=== PATIENT | male | born 1970 | race Caucasian/White ===

== ENCOUNTER 2020-02-12 19:13 | Emergency (ER) | payer SELFPAY ==
[2020-02-12 19:55] LABS: ABSOLUTE BASOPHILS # (AUTO) 0.1 10^3/uL (0.0-0.2); ABSOLUTE EOSINOPHILS # (AUTO) 0.4 10^3/uL (0.0-0.6); ABSOLUTE MONOCYTES (AUTO) 0.9 10^3/uL (0.1-1.4); ABSOLUTE NEUT (AUTO) 6.7 10^3/uL (1.7-8.2); EOSINOPHILS % (AUTO) 3.7 % (0-6); HEMATOCRIT 45.5 % (37.9-51.0); HEMOGLOBIN 16.2 g/dL (13.5-17.0); LYMPHOCYTES % (AUTO) 27.2 % (13-45); MEAN CORPUSCULAR HEMOGLOBIN 34.5 pg (27.0-33.4); MEAN CORPUSCULAR HGB CONC 35.6 g/dL (32.0-36.0); MEAN CORPUSCULAR VOLUME 97 fl (80-97); MONOCYTES % (AUTO) 7.9 % (3-13); PLATELET COUNT 470 10^3/uL (150-450); RED CELL DISTRIBUTION WIDTH 14.4 % (11.5-14.0); SEGMENTED NEUTROPHILS % (AUTO) 60.2 % (42-78); TOTAL CELLS COUNTED % (AUTO) 100 %; WHITE BLOOD COUNT 11.1 10^3/uL (4.0-10.5)
--- NOTE | 2020-02-12 20:04 | RADIOLOGY REPORT (SQ) ---
EXAM DESCRIPTION: CHEST SINGLE VIEW IMAGES COMPLETED DATE/TIME: 02/12/2020 6:38 pm REASON FOR STUDY: chest pain COMPARISON: 09/14/2015 EXAM PARAMETERS: NUMBER OF VIEWS: One view. TECHNIQUE: Single frontal radiographic view of the chest acquired. RADIATION DOSE: NA LIMITATIONS: None. FINDINGS: LUNGS AND PLEURA: No opacities, masses or pneumothorax. No pleural effusion. MEDIASTINUM AND HILAR STRUCTURES: No masses. Contour normal. HEART AND VASCULAR STRUCTURES: Heart normal in size. Normal vasculature. BONES: No acute findings. HARDWARE: None in the chest. OTHER: No other significant finding. IMPRESSION: NO ACUTE RADIOGRAPHIC FINDING IN THE CHEST. TECHNICAL DOCUMENTATION: JOB ID: [id number] 2010 [employer]- All Rights Reserved Reading location - IP/workstation name: [id number]
[2020-02-12 20:17] LABS: ALKALINE PHOSPHATASE 96 U/L (38-126); ANION GAP 8 (5-19); ASPARTATE AMINO TRANSFERASE 21 U/L (17-59); BILIRUBIN,TOTAL 0.5 mg/dL (0.2-1.3); BLOOD UREA NITROGEN 11 mg/dL (7-20); CALCIUM 9.4 mg/dL (8.4-10.2); CARBON DIOXIDE 26 mmol/L (22-30); CHLORIDE 104 mmol/L (98-107); CREATINE KINASE 81 U/L (55-170); GLUCOSE 114 mg/dL (75-110); POTASSIUM 4.2 mmol/L (3.6-5.0); TOTAL PROTEIN 7.1 g/dL (6.3-8.2)
[2020-02-12 20:29] LABS: CREATINE KINASE MB 2.76 ng/mL (<4.55); TROPONIN I < 0.012 ng/mL
[2020-02-12] MEDS ORDERED: ALBUTEROL SULFATE HFA (90 MCG/PUFF) 8 GM MDI IH ONE (20:48)
--- NOTE | 2020-02-12 20:52 | ER Document Report ---
ED General - General Chief Complaint: Chest Pain Stated Complaint: COUGH Time Seen by Provider: 02/12/20 20:17 Primary Care Provider: OLIVER SARABIA MD [ACTIVE PROVISIONAL STAFF] - Follow up as needed Notes: 49-year-old male presents emergency department complaining of central chest pain all day long that feels similar to when he was diagnosed with atrial fibrillation in the past. Denies any shortness of breath, admits chronic cough associated with COPD/emphysema. States it is unchanged. Patient was brought in by EMS, given 2 sprays of nitroglycerin that he does not feel significantly changed his chest pain. Patient does note that he had 6 beers and 2 shots last night. States he used to be a really heavy drinker but he has cut back. Now he states he drinks heavily 1 day a week. Denies any history of pancreatitis or esophagitis. Denies any nausea or vomiting, admits chronic diarrhea that is unchanged. TRAVEL OUTSIDE OF THE [place] IN LAST 30 DAYS: No - Related Data Allergies/Adverse Reactions: No Known Allergies Allergy (Verified 07/15/16 12:26) Past Medical History - General Information source: Patient - Social History Smoking Status: Current Every Day Smoker Frequency of alcohol use: Occasional - Drinks heavily 1 day a week Drug Abuse: Marijuana Family History: None Patient has suicidal ideation: No Patient has homicidal ideation: No - Past Medical History Cardiac Medical History: Reports: Hx Atrial Fibrillation, Hx Hypertension Pulmonary Medical History: Reports: Hx COPD - Describes it as emphysema. Continues to smoke Denies: Hx Tuberculosis Endocrine Medical History: Reports: Hx Diabetes Mellitus Type 1, Hx Diabetes Mellitus Type 2 Malignancy Medical History: Reports Hx Colorectal Cancer - Colonoscopy polypectomy while in retirement. Premalignant GI Medical History: Reports: Hx Colonoscopy - S/P polypectomy Musculoskeletal Medical History: Reports Hx Arthritis - Osteo Psychiatric Medical History: Reports: Hx Depression - He does have osteoarthritis Past Surgical History: Reports: Hx Bowel Surgery - Colon cancer removed, Hx Tonsillectomy - Immunizations Hx Diphtheria, Pertussis, Tetanus Vaccination: Yes Review of Systems - Review of Systems Constitutional: No symptoms reported EENT: No symptoms reported Cardiovascular: See HPI, Chest pain. denies: Palpitations, Heart racing, Orthopnea, Dyspnea Respiratory: See HPI, Cough, Sputum. denies: Hurts to breathe, Short of breath Gastrointestinal: No symptoms reported -: Yes All other systems reviewed and negative Physical Exam - Vital signs Vitals: Pulse Ox 95 02/12/20 19:13 Interpretation: Hypertensive - Notes Notes: GENERAL: Alert, interacts well. No acute distress. HEAD: Normocephalic, atraumatic EYES: Pupils equal, round and reactive to light, extraocular movements intact. ENT: Oral mucosa moist, tongue midline. NECK: Full range of motion, supple, trachea midline. LUNGS: Clear to auscultation bilaterally, no wheezes, rales or rhonchi, no respiratory distress. HEART: Regular rate and rhythm, no murmurs, gallops, rubs. ABDOMEN: Soft, nontender, nondistended, bowel sounds present in all 4 quadrants. EXTREMITIES: Moves all 4 extremities spontaneously, no edema, radial and dorsalis pedis pulses 2/4 bilaterally. No cyanosis. NEUROLOGICAL: Alert and oriented x3, normal speech. PSYCH: Normal mood, normal affect. SKIN: Warm, Dry, normal turgor, no rashes or lesions noted. Course - Re-evaluation Re-evalutation: 02/12/20 23:14 CBC shows leukocytosis at 11.1, platelets elevated at 470, CMP unremarkable, lipase normal, initial troponin 0 0.012, repeat troponin is pending although I suspect is going to also be negative as this chest pain has been going on since early this morning. Flu swabs are negative. Chest x-ray does not reveal pneumonia. EKG is nonischemic. Suspect that this is likely coming from alcoholic gastritis and esophagitis. Patient is recommended to quit drinking and take Pepcid 20 mg twice a day for the next month. Follow-up with a stick feeder as an outpatient for further risk stratification and possible st ress testing. 02/12/20 23:55 Repeat troponin negative. Discharged home. 02/12/20 23:55 - Vital Signs Vital signs: Temp Pulse Resp BP Pulse Ox 98.6 F 13 115/58 L 91 L 02/12/20 22:48 02/12/20 23:01 02/12/20 23:01 02/12/20 23:01 - Laboratory Result Diagrams: 02/12/20 19:42 02/12/20 19:42 Laboratory results interpreted by me: 02/12/20 02/12/20 19:42 19:42 WBC 11.1 H MCH 34.5 H RDW 14.4 H Plt Count 470 H Glucose 114 H - EKG Interpretation by Me Additional EKG results interpreted by me: 02/12/20 20:52 EKG shows sinus tachycardia at a rate of 102, normal axis, 1 PAC, no ST segment elevations or depressions, T wave inversions in aVL, flattening in V2 per my interpretation. Discharge - Discharge Clinical Impression: Chest pain with low risk for cardiac etiology Condition: Stable Disposition: HOME, SELF-CARE Additional Instructions: I do not know exactly what is causing your chest pain today. There is no evidence of a heart attack. If you continue to have chest pain is strongly suggest you follow-up with a stick feeder as an outpatient for further testing and risk factor reduction. I do suspect that your chest pain is coming from your habit of drinking heavily once a week. You drink 6 beers and 2 shots last evening and now today you have pain in your chest. This is likely coming from either alcoholic gastritis or alcoholic esophagitis. This can be reduced by quitting drinking but also by taking Pepcid 20 mg twice a day for at least the next month Prescriptions: Famotidine [Pepcid 20 mg Tablet] 20 mg PO BID #60 tablet Referrals: OLIVER SARABIA MD [ACTIVE PROVISIONAL STAFF] - Follow up as needed
[2020-02-12 21:32] LABS: A TYPE INFLUENZA AG NEGATIVE (NEGATIVE); B INFLUENZA AG NEGATIVE (NEGATIVE)
[2020-02-13 00:11] VITALS: BP 121/67
--- NOTE | 2020-02-13 00:14 | EKG REPORT ---
SEVERITY:- BORDERLINE ECG - SINUS TACHYCARDIA ATRIAL PREMATURE COMPLEX BORDERLINE T ABNORMALITIES, ANT-LAT LEADS : Confirmed by: Nadeem Hernandez 13-Feb-2020 00:13:45
== END 2020-02-13 00:11 | disposition home or self-care (01) ==
LOC: ER 19:13
DX: R07.9 Chest pain, unspecified (principal); F17.200 Nicotine dependence, unspecified, uncomplicated; I48.91 Unspecified atrial fibrillation; I10 Essential (primary) hypertension; E11.9 Type 2 diabetes mellitus without complications; Z85.038 Personal history of other malignant neoplasm of large intestine
CPT/HCPCS: 93005; 99284; 36415; 82553; 82550; 83690; 85025; 80053; 84484; 87804; 71045; 93010; J3490